=== PATIENT | male | born 1960 | race Caucasian/White ===

== ENCOUNTER 2023-08-09 12:29 | Emergency (ER) | payer BC, SELFPAY ==
[2023-08-09 12:42] VITALS: BP 130/80; PULSE 92; RESP 18; TEMP 36.3; O2SAT 92
--- NOTE | 2023-08-09 13:51 | ED.EYEPROB ---
HPI - Eye Problem General Chief complaint: Eye Problems Stated complaint: R. eye pressure Time Seen by Provider: 08/09/23 12:56 History of Present Illness HPI Narrative: Patient is a 62-year-old male who presents to the emergency department this afternoon due to right eye redness. Patient states that this occurred approximately an hour prior to arrival suddenly and he only noticed it because someone also him that his eye was red. Patient states that when this occurred he was exerting a lot of energy pushing a car which we over 400 lb. Patient is diabetic and sees an sound truck operator yearly and has been well controlled on his diabetes. Visual acuity performed in triage revealed no changes. Patient is currently denying any pain. Patient denies any additional symptoms including chest pain, shortness of breath, nausea, vomiting, abdominal pain, dysuria, hematuria, constipation, diarrhea, melena, hematochezia, fevers or chills. Patient also denies any headaches, dizziness, lightheadedness, blurry visions, focal weakness, numbness and or tingling. There are no other modifying, alleviating, or precipitating factors at this time. Related Data Allergies Allergy/AdvReac Type Severity Reaction Status Date / Time ragweed pollen Allergy Unknown Verified 08/09/23 13:07 Review of Systems Review of Systems: All systems are reviewed and are negative unless stated otherwise in the HPI. Exam Narrative: General: Alert, awake, afebrile, in no acute distress. HEENT: PERRL, no rhinorrhea, no post nasal drip, oropharynx clear, right subconjunctival hemorrhage extending from the 10 to 2 o'clock region with chemosis, no pain with extraocular movement. Neck: Trachea midline, no JVD, no lymphadenopathy. Cardiovascular: Regular rate and rhythm, no murmurs, rubs or gallops, no peripheral edema. Respiratory: Clear to auscultation bilaterally, no tachypnea, no wheezing, no rhonchi, no rubs, no respiratory distress. Abdomen: Soft, nontender, nondistended, no rebound, no guarding, no peritoneal signs. Musculoskeletal: No joint swelling or deformity, normal muscle tone. Skin: No rashes or petechia, no signs of infection. Psychiatric: Alert and oriented, normal behavior and judgment for situation. Neurological: Alert and oriented to person, place, and time. Follows all commands. No focal deficits, speech is clear and fluent. Course Vital Signs Vital signs: Vital Signs Temperature 97.4 F L 08/09/23 12:42 Pulse Rate 92 08/09/23 12:42 Respiratory Rate 18 08/09/23 12:42 Blood Pressure 130/80 08/09/23 12:42 Pulse Oximetry 92 08/09/23 12:42 Oxygen Delivery Room Air 08/09/23 12:42 Temperature 97.4 F L 08/09/23 12:42 Pulse Rate 92 08/09/23 12:42 Respiratory Rate 18 08/09/23 12:42 Blood Pressure 130/80 08/09/23 12:42 Pulse Oximetry 92 08/09/23 12:42 Oxygen Delivery Room Air 08/09/23 12:42 MDM - Eye Problem MDM Narrative Medical decision making narrative: The patient was evaluated by myself in the emergency department. History is obtained from patient who is an independent historian and physical exam was performed. External medical records were reviewed at this time. IV was established and pertinent tests were ordered. Patient was informed that this is most likely a subconjunctival hemorrhage which was precipitated by his physical exertion. Patient was instructed to follow-up with his sound truck operator within the next 2-3 days into [facility] emergency department if any new or worsening symptoms develop and that this will clear up on its own and patient is agreeable. I have evaluated and discussed social determinants of health with the patient that could potentially impact subsequent diagnosis and treatment plans. On repeat assessment of the patient, reevaluation revealed that the patient is doing well and is in no acute distress. Patient symptoms have improved since he arrived to our emergency department. Repeat vital
== END 2023-08-09 14:19 | disposition home or self-care (01) ==
PROVIDERS: Emergency Provider Emergency Medicine
DX: H11.31 Conjunctival hemorrhage, right eye (principal); X50.0XXA Overexertion from strenuous movement or load, initial encounter
CPT/HCPCS: 99282